=== PATIENT | male | born 1975 | race African-American/Black ===

== ENCOUNTER 2017-01-12 01:40 | Inpatient (IN) | payer OTHER ==
[~2017-01-12] VITALS: Ht 167.6 cm; Wt 62.7 kg
[2017-01-12 02:35] LABS: HEMATOCRIT 35.3 % (38.0-50.0); MCV 85.3 FL (86-99); MEAN PLAT.VOLUME 9.1 uM^3 (9.0-12.4); PLATELET COUNT 407 K/uL (156-360); RBC DIS.WIDTH-SD 42.9 % (39-53); RED BLOOD COUNT 4.14 M/uL (4.00-5.50); WHITE BLOOD COUNT 20.1 K/uL (4.1-10.2)
[2017-01-12 02:39] LABS: EOSINOPHIL (%) 0 % (0-5); IMMATURE GRANULOCYTE (%) 0.3 % (0.0-0.7); IMMATURE GRANULOCYTE COUNT 0.6 K/uL; LYMPHOCYTE COUNT 1.6 K/uL (1.0-2.8); MONOCYTE (%) 9.1 % (3-12); MONOCYTE COUNT 1.8 K/uL (0-0.8); NEUTROPHIL (%) 82.4 % (45-76); NEUTROPHIL COUNT 16.6 K/uL (1.8-6.4)
[2017-01-12 02:47] LABS: CHLORIDE 101 mEq/L (99-109); INTER. NORMALIZED RATIO 1.3; POTASSIUM 3.4 mEq/L (3.7-5.4); PROTHROMBIN TIME 13.1 (9.2-11.2); PTT 35.9 (25-32); SODIUM 138 mEq/L (136-147)
[2017-01-12 02:49] LABS: GLUCOSE 109 mg/dL (70-99)
[2017-01-12 02:50] LABS: ANION GAP 12 MEQ/L (2-14)
[2017-01-12 02:51] LABS: TOTAL BILIRUBIN 0.5 mg/dL (0.0-1.0)
[2017-01-12 02:52] LABS: ALKALINE PHOSPHATASE 73 IU/L (3-129)
[2017-01-12 02:53] LABS: GFR ESTIMATE (CALCULATED) > 59 mL/min/
[2017-01-12 02:54] LABS: UREA NITROGEN (BUN) 9 mg/dL (9-23)
[2017-01-12 02:56] LABS: LIPASE 17 U/L (1.0-51.0)
[2017-01-12 03:47] LABS: INFLUENZA A VIRAL ANTIGEN NEGATIVE; INFLUENZA B VIRAL ANTIGEN NEGATIVE
[2017-01-12] MEDS ORDERED: DIAZEPAM10 MG PO (04:12)
[2017-01-12] MEDS ORDERED: GRALISE300 MG PO (04:13)
[2017-01-12] MEDS ORDERED: OXYCONTIN10 MG PO (04:13)
[2017-01-12 04:41] LABS: ADD MIUA? YES; BILIRUBIN NEGATIVE; BLOOD MODERATE; COLOR YELLOW ((YELLOW)); GLUCOSE (STRIP) NEGATIVE; KETONES NEGATIVE; LEUKOCYTES NEGATIVE; NITRITE NEGATIVE; PROTEIN (STRIP) NEGATIVE; SPECIFIC GRAVITY 1.033 (1.000-1.030); UROBILINOGEN 0.2 MG/DL (0.2-1.0)
[2017-01-12 04:46] LABS: BACTERIA NONE SEEN /HPF; EPITHELIAL CELLS RARE /HPF; MUCUS NONE SEEN /LPF; UCUL ADDED? NO; WHITE BLOOD CELLS 0-5 /HPF (0-5)
[2017-01-12 06:18] VITALS: BP 97/55
[2017-01-12 06:19] VITALS: BP 97/55
[2017-01-12 07:45] VITALS: BP 99/58
[2017-01-12 10:05] LABS: INTERNAL CONTROL VALID? YES
[2017-01-12 16:15] VITALS: BP 99/61
[2017-01-12 19:31] VITALS: BP 108/66
[2017-01-12 23:31] VITALS: BP 101/59
[2017-01-13 04:10] VITALS: BP 99/60
[2017-01-13 06:47] LABS: EOSINOPHIL COUNT 0.2 K/uL (0-0.3); HEMATOCRIT 32.4 % (38.0-50.0); IMMATURE GRANULOCYTE (%) 0.4 % (0.0-0.7); IMMATURE GRANULOCYTE COUNT 0.1 K/uL; LYMPHOCYTE COUNT 1.7 K/uL (1.0-2.8); MCHC 33.6 G/DL (30.0-36.0); MCV 86.2 FL (86-99); MEAN PLAT.VOLUME 9.6 uM^3 (9.0-12.4); MONOCYTE (%) 8.8 % (3-12); NEUTROPHIL (%) 74.5 % (45-76); NEUTROPHIL COUNT 8.8 K/uL (1.8-6.4); PLATELET COUNT 362 K/uL (156-360); RBC DIS.WIDTH-CV 14.5 % (11.8-14.6); RBC DIS.WIDTH-SD 45.4 % (39-53); RED BLOOD COUNT 3.76 M/uL (4.00-5.50)
[2017-01-13 06:48] LABS: WHITE BLOOD COUNT 11.9 K/uL (4.1-10.2)
[2017-01-13 06:53] LABS: ANION GAP 5 MEQ/L (2-14); CHLORIDE 108 MEQ/L (99-109); GFR ESTIMATE (CALCULATED) > 59 mL/min/; GLUCOSE 119 mg/dL (70-99); POTASSIUM 3.6 MEQ/L (3.7-5.4); SAMPLE HEMOLYSIS CHECK 0; SAMPLE ICTERIC CHECK 0; SAMPLE LIPEMIA CHECK 0; SODIUM 140 MEQ/L (136-147); UREA NITROGEN (BUN) 8 mg/dL (9-23)
[2017-01-13 08:18] VITALS: BP 113/78
[2017-01-13] MEDS ORDERED: LIDODERM 5% P1 PATCH TD (10:33)
[2017-01-13] MEDS ORDERED: NICODERM CQ1 EAC1 TD (10:33)
[2017-01-13 10:37] LABS: HIV INDEX 0.14; HIV-1/2 AB/AG COMBO Nonreactive; HPCA INDEX 0.08
[2017-01-13 11:55] VITALS: BP 134/88
[2017-01-13 16:01] VITALS: BP 130/86
[2017-01-13 20:04] VITALS: BP 112/69
[2017-01-13 23:35] VITALS: BP 135/85
[2017-01-14 04:06] VITALS: BP 122/87
[2017-01-14 07:14] VITALS: BP 127/82
[2017-01-14 09:07] LABS: EOSINOPHIL (%) 3.4 % (0-5); EOSINOPHIL COUNT 0.2 K/uL (0-0.3); HEMATOCRIT 33.4 % (38.0-50.0); IMMATURE GRANULOCYTE (%) 0.1 % (0.0-0.7); LYMPHOCYTE COUNT 1.5 K/uL (1.0-2.8); MCH 28.7 PG (29.0-34.0); MCHC 34.1 G/DL (30.0-36.0); MCV 84.1 FL (86-99); MEAN PLAT.VOLUME 9.7 uM^3 (9.0-12.4); MONOCYTE (%) 8.2 % (3-12); MONOCYTE COUNT 0.6 K/uL (0-0.8); NEUTROPHIL (%) 66.7 % (45-76); NEUTROPHIL COUNT 4.7 K/uL (1.8-6.4); PLATELET COUNT 406 K/uL (156-360); RBC DIS.WIDTH-CV 14.1 % (11.8-14.6); RBC DIS.WIDTH-SD 43.6 % (39-53); RED BLOOD COUNT 3.97 M/uL (4.00-5.50)
[2017-01-14 09:08] LABS: WHITE BLOOD COUNT 7.1 K/uL (4.1-10.2)
[2017-01-14 09:10] LABS: ANION GAP 7 MEQ/L (2-14); CHLORIDE 107 MEQ/L (99-109); GFR ESTIMATE (CALCULATED) > 59 mL/min/; GLUCOSE 92 mg/dL (70-99); POTASSIUM 3.7 MEQ/L (3.7-5.4); SAMPLE HEMOLYSIS CHECK 0; SAMPLE ICTERIC CHECK 0; SAMPLE LIPEMIA CHECK 0; SODIUM 142 MEQ/L (136-147); UREA NITROGEN (BUN) 7 mg/dL (9-23)
[2017-01-14 10:59] VITALS: BP 124/72
[2017-01-14 14:44] VITALS: BP 116/73
[2017-01-14 19:49] VITALS: BP 135/80
[2017-01-15] VITALS: BP 139/89
[2017-01-15 04:00] VITALS: BP 107/67
[2017-01-15 07:16] VITALS: BP 145/86
[2017-01-15 10:59] VITALS: BP 103/63
[2017-01-15] MEDS ORDERED: DIAZEPAM10 MG PO (14:38)
[2017-01-15] MEDS ORDERED: LIDODERM 5% P1 PATCH TD (14:38)
[2017-01-15] MEDS ORDERED: OXYCONTIN10 MG PO (14:38)
[2017-01-15] MEDS ORDERED: GRALISE300 MG PO (14:38)
[2017-01-15] MEDS ORDERED: AMOX TR-K CLV1 EAC4 PO (14:38)
[2017-01-15] MEDS ORDERED: TORADOL10 MG PO (14:38)
[2017-01-15 14:52] VITALS: BP 106/68
[2017-01-15] MEDS ORDERED: CLONIDINE HCL0.1 MG PO (22:45)
[2017-01-15] MEDS ORDERED: AUGMENTIN875 MG PO (22:45)
[2017-01-15] MEDS ORDERED: TRAZODONE HCL50 MG PO (22:45)
[2017-01-16] MEDS ORDERED: GABAPENTIN300 MG PO (00:03)
[2017-01-16] MEDS ORDERED: LIDODERM 5% P1 PATCH TD (00:03)
== END 2017-01-15 18:42 | disposition home or self-care (01) | DRG 871 ==
LOC: EME 01:40 → EDOF 04:49 → 5SOUTH 04:49 → 3EAST 04:49 → 5SOUTH 01-13 23:21
PROVIDERS: Emergency Medicine; Hospitalist; Internal Medicine
DX: A41.9 Sepsis, unspecified organism (principal); J18.1 Lobar pneumonia, unspecified organism; E87.2 Acidosis; F11.20 Opioid dependence, uncomplicated; F14.20 Cocaine dependence, uncomplicated; E87.6 Hypokalemia; K05.10 Chronic gingivitis, plaque induced; K04.7 Periapical abscess without sinus; D47.3 Essential (hemorrhagic) thrombocythemia; M48.02 Spinal stenosis, cervical region; M51.16 Intervertebral disc disorders with radiculopathy, lumbar region; F12.20 Cannabis dependence, uncomplicated; F17.200 Nicotine dependence, unspecified, uncomplicated
CPT/HCPCS: 71010; 72132; 72141; 72146; 72158; 74177; 80048; 80053; 81003; 83605; 83690; 83735; 85025; 85610; 85730; 86703; 86803; 87040; 87070; 87205; 87449; 87502; 93005; 94640; 94799; 99202; 99281; 99285; J0456; J0696; J1650; J1885; J2060; J2270; J2405; J2543; J3370; J7050; J7120

== ENCOUNTER 2017-01-15 20:56 | Observation (INO) | payer OTHER ==
[~2017-01-15] VITALS: Ht 134.6 cm; Wt 64.0 kg
[~2017-01-15 20:56] MED LIST: AMOX TR-K CLV1 EAC4 PO; DIAZEPAM10 MG PO; GRALISE300 MG PO; LIDODERM 5% P1 PATCH TD; NICODERM CQ1 EAC1 TD; OXYCONTIN10 MG PO; TORADOL10 MG PO
[2017-01-15 21:52] LABS: EOSINOPHIL (%) 2.6 % (0-5); EOSINOPHIL COUNT 0.2 K/uL (0-0.3); HEMATOCRIT 34.1 % (38.0-50.0); IMMATURE GRANULOCYTE (%) 0.8 % (0.0-0.7); IMMATURE GRANULOCYTE COUNT 0.7 K/uL; MCH 28.9 PG (29.0-34.0); MCHC 34.3 G/DL (30.0-36.0); MCV 84.2 FL (86-99); MEAN PLAT.VOLUME 8.9 uM^3 (9.0-12.4); MONOCYTE (%) 9.6 % (3-12); MONOCYTE COUNT 0.8 K/uL (0-0.8); NEUTROPHIL (%) 63.4 % (45-76); NEUTROPHIL COUNT 5.4 K/uL (1.8-6.4); PLATELET COUNT 506 K/uL (156-360); RBC DIS.WIDTH-CV 14.2 % (11.8-14.6); RBC DIS.WIDTH-SD 42.7 % (39-53); RED BLOOD COUNT 4.05 M/uL (4.00-5.50); WHITE BLOOD COUNT 8.5 K/uL (4.1-10.2)
[2017-01-15 22:00] LABS: CHLORIDE 109 mEq/L (99-109); POTASSIUM 3.9 mEq/L (3.7-5.4); SODIUM 144 mEq/L (136-147)
[2017-01-15 22:02] LABS: GLUCOSE 101 mg/dL (70-99)
[2017-01-15 22:03] LABS: ANION GAP 8 MEQ/L (2-14)
[2017-01-15 22:06] LABS: GFR ESTIMATE (CALCULATED) > 59 mL/min/; UREA NITROGEN (BUN) 11 mg/dL (9-23)
[2017-01-15] MEDS ORDERED: TRAZODONE HCL50 MG PO (22:45)
[2017-01-15] MEDS ORDERED: CLONIDINE HCL0.1 MG PO (22:45)
[2017-01-15] MEDS ORDERED: AUGMENTIN875 MG PO (22:45)
[2017-01-16] MEDS ORDERED: LIDODERM 5% P1 PATCH TD (00:03)
[2017-01-16] MEDS ORDERED: GABAPENTIN300 MG PO (00:03)
[2017-01-16 02:04] VITALS: BP 121/65
[2017-01-16 08:28] VITALS: BP 116/72
[2017-01-16 12:00] VITALS: BP 119/78
== END 2017-01-16 14:10 | disposition home or self-care (01) ==
LOC: EME 20:56 → EDOF 01-16 01:04 → 5WEST 01-16 01:56
PROVIDERS: Physician Assistant
DX: J18.9 Pneumonia, unspecified organism (principal); J98.09 Other diseases of bronchus, not elsewhere classified; F17.200 Nicotine dependence, unspecified, uncomplicated; D64.9 Anemia, unspecified; F19.10 Other psychoactive substance abuse, uncomplicated; Z59.0 Homelessness
CPT/HCPCS: 71250; 80048; 83605; 85025; 87040; 99281; 99285; G0378; J1956

== ENCOUNTER 2017-01-17 18:35 | Emergency (ER) | payer OTHER ==
[~2017-01-17] VITALS: Ht 154.9 cm; Wt 47.7 kg
[~2017-01-17 18:35] MED LIST changes: +AUGMENTIN875 MG PO; +CLONIDINE HCL0.1 MG PO; +GABAPENTIN300 MG PO; +TRAZODONE HCL50 MG PO
[2017-01-17 21:20] VITALS: BP 124/89
[2017-02-06] MEDS ORDERED: OXYCONTIN10 MG PO ×2 (16:05→16:57)
[2017-02-06] MEDS ORDERED: OXYCODONE HCL5 MG PO (16:05)
== END 2017-01-17 21:25 | disposition home or self-care (01) ==
LOC: EME 18:35
DX: G89.29 Other chronic pain (principal); M54.9 Dorsalgia, unspecified; R53.1 Weakness; Z91.81 History of falling; F17.200 Nicotine dependence, unspecified, uncomplicated; Z71.6 Tobacco abuse counseling
CPT/HCPCS: 99281; 99285; J1100; J1885

== ENCOUNTER 2017-01-24 18:03 | Emergency (ER) | payer OTHER ==
[~2017-01-24] VITALS: Ht 157.5 cm; Wt 60.6 kg
[2017-01-24 20:17] VITALS: BP 118/76
== END 2017-01-24 20:18 | disposition home or self-care (01) ==
LOC: EME 18:03
DX: M48.02 Spinal stenosis, cervical region (principal); G89.29 Other chronic pain; K21.9 Gastro-esophageal reflux disease without esophagitis; F17.200 Nicotine dependence, unspecified, uncomplicated
CPT/HCPCS: 99281; 99283

== ENCOUNTER 2017-01-28 00:47 | Emergency (ER) | payer OTHER ==
[~2017-01-28] VITALS: Ht 167.6 cm; Wt 64.1 kg
[2017-01-28 01:38] LABS: BASOPHIL COUNT 0.1 K/uL (0-0.1); EOSINOPHIL (%) 2.8 % (0-5); EOSINOPHIL COUNT 0.3 K/uL (0-0.3); HEMATOCRIT 35.3 % (38.0-50.0); IMMATURE GRANULOCYTE (%) 0.2 % (0.0-0.7); INSTRUMENT ABS NEUTROPHIL CT 6.5 K/uL; LYMPHOCYTE COUNT 2.7 K/uL (1.0-2.8); MCHC 33.1 G/DL (30.0-36.0); MCV 87.6 FL (86-99); MEAN PLAT.VOLUME 9.1 uM^3 (9.0-12.4); MONOCYTE (%) 7.4 % (3-12); MONOCYTE COUNT 0.8 K/uL (0-0.8); NEUTROPHIL (%) 62.9 % (45-76); NEUTROPHIL COUNT 6.5 K/uL (1.8-6.4); PLATELET COUNT 416 K/uL (156-360); RBC DIS.WIDTH-CV 15.8 % (11.8-14.6); RED BLOOD COUNT 4.03 M/uL (4.00-5.50); WHITE BLOOD COUNT 10.3 K/uL (4.1-10.2)
[2017-01-28 01:51] LABS: CHLORIDE 106 mEq/L (99-109); POTASSIUM 3.3 mEq/L (3.7-5.4); SODIUM 141 mEq/L (136-147)
[2017-01-28 01:53] LABS: GLUCOSE 97 mg/dL (70-99)
[2017-01-28 01:55] LABS: ANION GAP 10 MEQ/L (2-14)
[2017-01-28 01:56] LABS: SERUM ETHYL ALCOHOL < 10 mg/dL
[2017-01-28 01:57] LABS: GFR ESTIMATE (CALCULATED) > 59 mL/min/
[2017-01-28 01:58] LABS: UREA NITROGEN (BUN) 15 mg/dL (9-23)
[2017-01-28 02:00] LABS: LIPASE 38 U/L (1.0-51.0)
[2017-01-28 02:58] VITALS: BP 96/59
== END 2017-01-28 03:03 | disposition home or self-care (01) ==
LOC: EME 00:47
PROVIDERS: Emergency Medicine
DX: S13.9XXA Sprain of joints and ligaments of unspecified parts of neck, initial encounter (principal); M54.10 Radiculopathy, site unspecified; S06.9X9A Unspecified intracranial injury with loss of consciousness of unspecified duration, initial encounter; M25.552 Pain in left hip; R10.9 Unspecified abdominal pain; W00.0XXA Fall on same level due to ice and snow, initial encounter; D64.9 Anemia, unspecified; F17.200 Nicotine dependence, unspecified, uncomplicated
CPT/HCPCS: 70450; 71010; 72125; 73502; 80048; 81003; 83690; 85025; 86850; 86900; 86901; 99281; 99283; G0480; J1885

== ENCOUNTER 2017-01-31 12:12 | Emergency (ER) | payer OTHER ==
[~2017-01-31] VITALS: Ht 167.6 cm; Wt 65.4 kg
[2017-01-31 14:59] LABS: BASOPHIL COUNT 0.1 K/uL (0-0.1); EOSINOPHIL (%) 0.8 % (0-5); EOSINOPHIL COUNT 0.1 K/uL (0-0.3); HEMATOCRIT 38.2 % (38.0-50.0); IMMATURE GRANULOCYTE (%) 0.2 % (0.0-0.7); INSTRUMENT ABS NEUTROPHIL CT 10.7 K/uL; LYMPHOCYTE COUNT 1.4 K/uL (1.0-2.8); MCH 29.2 PG (29.0-34.0); MCV 88.4 FL (86-99); MEAN PLAT.VOLUME 9.3 uM^3 (9.0-12.4); MONOCYTE (%) 6.1 % (3-12); MONOCYTE COUNT 0.8 K/uL (0-0.8); NEUTROPHIL (%) 81.7 % (45-76); NEUTROPHIL COUNT 10.7 K/uL (1.8-6.4); PLATELET COUNT 358 K/uL (156-360); RED BLOOD COUNT 4.32 M/uL (4.00-5.50); WHITE BLOOD COUNT 13.1 K/uL (4.1-10.2)
[2017-01-31 15:08] LABS: CHLORIDE 108 mEq/L (99-109); POTASSIUM 3.9 mEq/L (3.7-5.4); SODIUM 139 mEq/L (136-147)
[2017-01-31 15:10] LABS: GLUCOSE 116 mg/dL (70-99)
[2017-01-31 15:11] LABS: ANION GAP 8 MEQ/L (2-14)
[2017-01-31 15:14] LABS: GFR ESTIMATE (CALCULATED) > 59 mL/min/
[2017-01-31 15:15] LABS: UREA NITROGEN (BUN) 7 mg/dL (9-23)
[2017-01-31] MEDS ORDERED: NEURONTIN300 MG PO (17:08)
[2017-01-31] MEDS ORDERED: PERCOCET 5/31 TABLET PO (17:08)
[2017-01-31 17:42] VITALS: BP 123/72
== END 2017-01-31 17:43 | disposition home or self-care (01) ==
LOC: EME 12:12
PROVIDERS: Emergency Medicine
DX: M54.9 Dorsalgia, unspecified (principal); R20.0 Anesthesia of skin; R20.2 Paresthesia of skin; Z59.0 Homelessness; K21.9 Gastro-esophageal reflux disease without esophagitis; F17.200 Nicotine dependence, unspecified, uncomplicated
CPT/HCPCS: 70450; 72131; 80048; 85025; 93005; 99281; 99285

== ENCOUNTER 2017-02-02 19:05 | Inpatient (IN) | payer OTHER ==
[~2017-02-02] VITALS: Ht 167.6 cm; Wt 68.3 kg
[~2017-02-02 19:05] MED LIST changes: +NEURONTIN300 MG PO; +PERCOCET 5/31 TABLET PO
[2017-02-02 20:01] LABS: HEMATOCRIT 35.7 % (38.0-50.0); MCH 29.3 PG (29.0-34.0); MCHC 33.1 G/DL (30.0-36.0); MCV 88.6 FL (86-99); MEAN PLAT.VOLUME 9.5 uM^3 (9.0-12.4); PLATELET COUNT 326 K/uL (156-360); RBC DIS.WIDTH-CV 16.1 % (11.8-14.6); RBC DIS.WIDTH-SD 53.1 % (39-53); RED BLOOD COUNT 4.03 M/uL (4.00-5.50); WHITE BLOOD COUNT 10.2 K/uL (4.1-10.2)
[2017-02-02 20:13] LABS: CHLORIDE 107 mEq/L (99-109); POTASSIUM 3.7 mEq/L (3.7-5.4); SODIUM 141 mEq/L (136-147)
[2017-02-02 20:14] LABS: GLUCOSE 113 mg/dL (70-99)
[2017-02-02 20:16] LABS: ANION GAP 9 MEQ/L (2-14)
[2017-02-02 20:18] LABS: GFR ESTIMATE (CALCULATED) > 59 mL/min/
[2017-02-02 20:19] LABS: UREA NITROGEN (BUN) 11 mg/dL (9-23)
[2017-02-02 20:23] LABS: TROP-I INTERPRETATION NEGATIVE; TROPONIN-I < 0.01 ng/mL (0.0-0.30)
[2017-02-02] MEDS ORDERED: NICODERM CQ1 EAC2 TD (22:04)
[2017-02-02] MEDS ORDERED: LIDODERM 5% P1 PATCH TD (22:04)
[2017-02-03 06:46] LABS: TROP-I INTERPRETATION NEGATIVE; TROPONIN-I < 0.01 ng/mL (0.0-0.30)
[2017-02-03 13:02] LABS: TROP-I INTERPRETATION NEGATIVE; TROPONIN-I < 0.01 ng/mL (0.0-0.30)
[2017-02-03 15:52] VITALS: BP 97/58
[2017-02-03 18:23] LABS: D-DIMER ELISA 0.16 mg/L FEU (< 0.57)
[2017-02-03 19:15] VITALS: BP 109/62
[2017-02-04] VITALS (7 sets, daily range): BP systolic 90–108; BP diastolic 57–73
[2017-02-04 07:34] LABS: EOSINOPHIL (%) 6.2 % (0-5); EOSINOPHIL COUNT 0.4 K/uL (0-0.3); HEMATOCRIT 38.2 % (38.0-50.0); IMMATURE GRANULOCYTE (%) 0.2 % (0.0-0.7); INSTRUMENT ABS NEUTROPHIL CT 3.5 K/uL; LYMPHOCYTE COUNT 1.8 K/uL (1.0-2.8); MCH 28.6 PG (29.0-34.0); MCHC 31.4 G/DL (30.0-36.0); MEAN PLAT.VOLUME 9.7 uM^3 (9.0-12.4); MONOCYTE (%) 9.2 % (3-12); MONOCYTE COUNT 0.6 K/uL (0-0.8); NEUTROPHIL (%) 54.8 % (45-76); NEUTROPHIL COUNT 3.5 K/uL (1.8-6.4); PLATELET COUNT 319 K/uL (156-360); RBC DIS.WIDTH-CV 16.4 % (11.8-14.6); RBC DIS.WIDTH-SD 54.8 % (39-53)
[2017-02-04 07:36] LABS: WHITE BLOOD COUNT 6.3 K/uL (4.1-10.2)
[2017-02-04 07:41] LABS: ANION GAP 7 MEQ/L (2-14); CHLORIDE 106 MEQ/L (99-109); GFR ESTIMATE (CALCULATED) > 59 mL/min/; GLUCOSE 86 mg/dL (70-99); POTASSIUM 3.6 MEQ/L (3.7-5.4); SAMPLE HEMOLYSIS CHECK 0; SAMPLE ICTERIC CHECK 0; SAMPLE LIPEMIA CHECK 0; SODIUM 140 MEQ/L (136-147); UREA NITROGEN (BUN) 12 mg/dL (9-23)
[2017-02-04 12:26] LABS: ADD MIUA? YES; BILIRUBIN NEGATIVE; BLOOD MODERATE; COLOR YELLOW ((YELLOW)); GLUCOSE (STRIP) NEGATIVE; KETONES NEGATIVE; LEUKOCYTES NEGATIVE; NITRITE NEGATIVE; PROTEIN (STRIP) NEGATIVE; SPECIFIC GRAVITY 1.024 (1.000-1.030); UROBILINOGEN 0.2 MG/DL (0.2-1.0)
[2017-02-04 12:58] LABS: BACTERIA RARE /HPF; EPITHELIAL CELLS RARE /HPF; MUCUS 2+ /LPF; UCUL ADDED? NO; WHITE BLOOD CELLS 0-5 /HPF (0-5)
[2017-02-05 04:28] VITALS: BP 107/62
[2017-02-05 06:56] LABS: INTERNAL CONTROL VALID? YES
[2017-02-05 07:06] VITALS: BP 97/63
[2017-02-05 10:37] LABS: HEMATOCRIT 39.5 % (38.0-50.0); MCH 28.6 PG (29.0-34.0); MCHC 31.9 G/DL (30.0-36.0); MCV 89.8 FL (86-99); MEAN PLAT.VOLUME 9.8 uM^3 (9.0-12.4); PLATELET COUNT 342 K/uL (156-360); RBC DIS.WIDTH-CV 15.8 % (11.8-14.6); RBC DIS.WIDTH-SD 52.3 % (39-53); WHITE BLOOD COUNT 5.4 K/uL (4.1-10.2)
[2017-02-05 10:53] LABS: ANION GAP 9 MEQ/L (2-14); CHLORIDE 108 MEQ/L (99-109); GFR ESTIMATE (CALCULATED) > 59 mL/min/; GLUCOSE 114 mg/dL (70-99); POTASSIUM 3.8 MEQ/L (3.7-5.4); SAMPLE HEMOLYSIS CHECK 0; SAMPLE ICTERIC CHECK 0; SAMPLE LIPEMIA CHECK 0; SODIUM 140 MEQ/L (136-147); UREA NITROGEN (BUN) 12 mg/dL (9-23)
[2017-02-05 20:20] VITALS: BP 100/62
[2017-02-06 00:01] VITALS: BP 92/59
[2017-02-06 04:16] VITALS: BP 110/73
[2017-02-06 08:25] LABS: HEMATOCRIT 38.4 % (38.0-50.0); MCHC 31.8 G/DL (30.0-36.0); MCV 91.4 FL (86-99); MEAN PLAT.VOLUME 9.7 uM^3 (9.0-12.4); PLATELET COUNT 297 K/uL (156-360); RBC DIS.WIDTH-CV 15.9 % (11.8-14.6); RBC DIS.WIDTH-SD 54.3 % (39-53); WHITE BLOOD COUNT 5.9 K/uL (4.1-10.2)
[2017-02-06 08:50] LABS: ANION GAP 9 MEQ/L (2-14); CHLORIDE 111 MEQ/L (99-109); GFR ESTIMATE (CALCULATED) > 59 mL/min/; GLUCOSE 100 mg/dL (70-99); POTASSIUM 4.2 MEQ/L (3.7-5.4); SAMPLE HEMOLYSIS CHECK 0; SAMPLE ICTERIC CHECK 0; SAMPLE LIPEMIA CHECK 0; SODIUM 143 MEQ/L (136-147); UREA NITROGEN (BUN) 15 mg/dL (9-23)
[2017-02-06] MEDS ORDERED: TORADOL10 MG PO (15:46)
[2017-02-06] MEDS ORDERED: BACLOFEN10 MG PO (16:00)
[2017-02-06] MEDS ORDERED: DIAZEPAM10 MG PO (16:05)
[2017-02-06] MEDS ORDERED: OXYCODONE HCL5 MG PO ×2 (16:05→17:55)
[2017-02-06] MEDS ORDERED: OXYCONTIN10 MG PO ×3 (16:05→17:55)
[2017-02-06] MEDS ORDERED: LIDODERM 5% P1 PATCH TD (16:43)
[2017-02-06 17:25] VITALS: BP 114/70
== END 2017-02-06 18:56 | disposition home health service (06) | DRG 552 ==
LOC: EME → EDBD 19:05 → EDOF 02-03 01:04 → 4EAST 02-03 01:04
PROVIDERS: Emergency Medicine; Hospitalist; Internal Medicine Cardiovascular Disease; Physician Assistant
DX: M48.02 Spinal stenosis, cervical region (principal); F11.20 Opioid dependence, uncomplicated; R07.81 Pleurodynia; M54.12 Radiculopathy, cervical region; F17.210 Nicotine dependence, cigarettes, uncomplicated; Q76.49 Other congenital malformations of spine, not associated with scoliosis; F12.90 Cannabis use, unspecified, uncomplicated; M51.26 Other intervertebral disc displacement, lumbar region; G89.29 Other chronic pain; M51.16 Intervertebral disc disorders with radiculopathy, lumbar region
CPT/HCPCS: 71020; 80048; 81003; 84484; 85025; 85027; 85379; 87070; 87205; 87449; 93005; 93306; 97530 GP; 99202; J0456; J0696; J1650; J1885; J7050

== ENCOUNTER 2017-05-10 23:12 | Emergency (ER) | payer OTHER ==
[~2017-05-10] VITALS: Ht 167.6 cm; Wt 64.6 kg
[~2017-05-10 23:12] MED LIST changes: +BACLOFEN10 MG PO; +NICODERM CQ1 EAC2 TD; +OXYCODONE HCL5 MG PO
[2017-05-10 23:19] VITALS: BP 127/79
[2017-05-11] MEDS ORDERED: BACTRIM,SEPT1 TABLET PO (01:27)
[2017-05-11] MEDS ORDERED: NORCO 5/3251 TABLET PO (01:27)
[2017-05-11] MEDS ORDERED: KEFLEX500 MG PO (01:27)
== END 2017-05-11 02:34 | disposition home or self-care (01) ==
LOC: EME 23:12
PROC: 0H9CXZZ Drainage of Left Upper Arm Skin, External Approach (ICD-10-PCS; principal; 2017-05-10)
DX: L02.412 Cutaneous abscess of left axilla (principal)
CPT/HCPCS: 99281; 99284

== ENCOUNTER 2017-05-13 15:13 | Emergency (ER) | payer OTHER ==
[~2017-05-13] VITALS: Ht 167.6 cm; Wt 65.5 kg
[~2017-05-13 15:13] MED LIST changes: +BACTRIM,SEPT1 TABLET PO; +KEFLEX500 MG PO; +NORCO 5/3251 TABLET PO
[2017-05-13 15:16] VITALS: BP 122/93
[2017-05-13] MEDS ORDERED: MOTRIN800 MG PO (17:01)
== END 2017-05-13 17:10 | disposition home or self-care (01) ==
LOC: EME 15:13
DX: L02.412 Cutaneous abscess of left axilla (principal); Z48.01 Encounter for change or removal of surgical wound dressing; F17.200 Nicotine dependence, unspecified, uncomplicated
CPT/HCPCS: 99281; 99283

== ENCOUNTER 2017-05-17 13:00 | Emergency (ER) | payer OTHER ==
[~2017-05-17] VITALS: Ht 167.6 cm; Wt 64.8 kg
[~2017-05-17 13:00] MED LIST changes: +MOTRIN800 MG PO
[2017-05-17 13:07] VITALS: BP 119/83
== END 2017-05-17 13:37 | disposition home or self-care (01) ==
LOC: EME 13:00
DX: L02.412 Cutaneous abscess of left axilla (principal); Z48.01 Encounter for change or removal of surgical wound dressing; F17.200 Nicotine dependence, unspecified, uncomplicated
CPT/HCPCS: 99281; 99283

== ENCOUNTER 2017-05-25 15:36 | Emergency (ER) | payer OTHER ==
[~2017-05-25] VITALS: Ht 170.2 cm; Wt 65.6 kg
[2017-05-25] MEDS ORDERED: FLEXERIL10 MG PO (17:14)
[2017-05-25] MEDS ORDERED: NAPROSYN500 MG PO (17:14)
[2017-05-25 17:58] VITALS: BP 120/78
== END 2017-05-25 18:01 | disposition home or self-care (01) ==
LOC: EME 15:36
DX: S16.1XXA Strain of muscle, fascia and tendon at neck level, initial encounter (principal); M47.892 Other spondylosis, cervical region; M25.511 Pain in right shoulder; M25.512 Pain in left shoulder; S30.811A Abrasion of abdominal wall, initial encounter; V47.6XXA Car passenger injured in collision with fixed or stationary object in traffic accident, initial encounter; F17.200 Nicotine dependence, unspecified, uncomplicated
CPT/HCPCS: 72040; 99281; 99283